=== PATIENT | female | born 1990 | race Caucasian/White ===

== ENCOUNTER 2022-07-14 16:08 | Emergency (ER) | payer MEDICAID, SELFPAY ==
[2022-07-14 16:09] VITALS: BP 133/84; PULSE 79; RESP 16; TEMP 36.7; O2SAT 99; BMI 42.5
[2022-07-14 16:22] VITALS: BP 133/84; PULSE 79; RESP 16; TEMP 36.7; O2SAT 99
[2022-07-14 17:11] VITALS: BP 133/84; PULSE 79; RESP 16; TEMP 36.7; O2SAT 99
--- NOTE | 2022-07-14 17:54 | EDS_ITS ---
HPI History of Present Illness Chief Complaint: Cold Sx Informant: patient Narrative Narrative: Is a 32-year-old female with history of anxiety presenting with COVID-like symptoms. She is on multiple sick contacts at work. She works at [employer]. She started having symptoms 2 days ago including sore throat and stuffy nose. This is progressed to cough, congestion and then she developed decreased taste. She has some migraines. Has been taking Tylenol and [id number] allergy medicine. She wants to make sure she does or does not have COVID because she supposed to have her son for the weekends and also for work. No other complaints at this time. PFSH PFSH Medical History Non-smoker Home Medications dextromethorphan-guaifenesin ER 60 mg-1,200 mg tab,extend release,12hr (Mucinex DM) 1 tab PO BID PRN flu symptoms #20 tabs 07/14/22 [Rx Last Taken Unknown] ferrous sulfate 325 mg (65 mg iron) tablet (FeroSul) 345 mg PO DAILY 07/14/22 [History Last Taken Unknown] meloxicam 7.5 mg tablet 7.5 mg PO BID 07/14/22 [History Last Taken Unknown] venlafaxine 150 mg tablet,extended release 24 hr 150 mg PO DAILY 07/14/22 [History Last Taken Unknown] Allergy/AdvReac Type Severity Reaction Status Date / Time latex AdvReac Rash Verified 07/14/22 16:11 Social History Smoking Status: Never smoker ROS [facility] ED Constitutional Constitutional ED: Reports chills and sweats; Denies fever(s) Eyes Eyes: Denies change in vision ENT ENT ED: Reports rhinorrhea and sore throat; Denies ear pain Cardiovascular Cardiovascular: Denies chest pain or palpitations Respiratory/Chest Respiratory/Chest: Reports cough; Denies dyspnea Gastrointestinal Gastrointestinal: Denies abdominal pain, diarrhea, nausea or vomiting Genitourinary Genitourinary ED: Denies dysuria or hematuria Musculoskeletal Musculoskeletal: Denies arthralgias, back pain, myalgias or neck pain Integumentary Denies rash Neurologic Neurologic: Reports headache(s); Denies paresthesias or weakness Psychiatric Psychiatric: Reports anxiety Hematologic/Lymphatic Hematologic/Lymphatic: Denies easy bleeding or easy bruising EXAM Physical Exam Const Vital Signs: 07/14/22 16:09 07/14/22 16:22 07/14/22 16:23 Temperature 98.1 F 98.1 F Temperature Source Temporal Temporal Pulse Rate 79 79 Respiratory Rate 16 16 Respiratory Effort Normal Respiratory Depth Normal Respiratory Pattern Normal Blood Pressure 133/84 H 133/84 H Blood Pressure Mean 100 100 Pulse Ox 99 99 Oxygen Delivery Method Room Air Room Air Room Air 07/14/22 17:11 Temperature 98.1 F Temperature Source Temporal Pulse Rate 79 Respiratory Rate 16 Respiratory Effort Respiratory Depth Respiratory Pattern Blood Pressure 133/84 H Blood Pressure Mean 100 Pulse Ox 99 Oxygen Delivery Method Room Air Positive well nourished and well developed General Appearance ED: well developed and NAD HEENT Reports TM's clear and moist mucous membranes HEENT Narrative: Air-fluid levels noted behind bilateral tympanic membranes. Normal oropharynx. Nasal congestion present. No redness overlying the sinuses. Tympanic Membrane ED: Yes TM's clear Eyes PERRL and EOMs intact bilaterally Neck supple and no JVD Chest Wall inspection of chest normal and palpation of chest normal Resp normal respiratory effort and clear to auscultation bilaterally Cardio regular rate, regular rhythm and no murmurs GI normal to inspection, nondistended, normoactive bowel sounds and non-tender Extremity normal to inspection Neuro oriented x3 Sensorium / Orientation: alert Motor Exam: Negative for general weakness Psych mental status grossly normal Skin no rashes or lesions noted and no wounds MDM MDM MDM Narrative Medical decision making narrative: Patient evaluated for COVID-like symptoms. She is overall well-appearing. No signs of respiratory distress. Vital signs are normal. COVID test is positive in the ER. Patient given general precautions and isolation precautions. Given a work note. Counseled on return precautions. Encouraged follow-up with primary care doctor. Discharged home in stable condition. Discharge Plan Triage Chief Complaint: Cold Sx ED Provider: Joy Hoyos Dx/Rx/DC Orders Clinical Impression: COVID-19 virus infection Instructions: Coronavirus Disease 2019 (COVID-19): Caring for Yourself or Others Prescriptions: New dextromethorphan-guaifenesin [Mucinex DM] 60-1,200 mg tablet extended release 12 hr 1 tab PO BID PRN (Reason: flu symptoms) Qty: 20 0RF No Action meloxicam 7.5 mg tablet 7.5 mg PO BID ferrous sulfate [FeroSul] 325 mg (65 mg iron) tablet 345 mg PO DAILY venlafaxine 150 mg tablet extended release 24hr 150 mg PO DAILY Stand Alone Forms: ED Work / School Excuse Primary Care Provider: Care Physician,No Primary Referrals: Care Physician,No Primary [Primary Care Provider] - Disposition Disposition: Home, Self Care
== END 2022-07-14 18:05 | disposition home or self-care (01) ==
PROVIDERS: Emergency Provider Emergency Medicine; Visit Provider Emergency Medicine
DX: U07.1 COVID-19 (principal)
CPT/HCPCS: 87428; 99282

== ENCOUNTER 2023-12-05 15:55 | Emergency (ER) | payer MEDICAID, SELFPAY ==
[2023-12-05 15:57] VITALS: BP 139/80; PULSE 85; RESP 18; TEMP 36.2; O2SAT 98; BMI 46.2
--- NOTE | 2023-12-05 16:36 | EDS_ITS ---
HPI History of Present Illness Chief Complaint: Back Informant: patient Narrative Narrative: 33-year-old female presenting to the emergency room with concern for pilonidal cyst. Patient states she has had 1 several years ago that was received incision and drainage. 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 States that her insurance was discontinued and she is not currently seeing primary care. She notes some pain that she has been experiencing for the past several weeks worse over the past several days in the low lumbar sacral region is concerned that maybe she has a cyst returning. Patient denies any drainage or fevers. She notes no radicular symptoms currently. She also notes that she is approximately 1 month late on her menstrual cycle. She notes 2 home test that were negative but I do not trust them and she wonders if she can get a blood test for . PFSH PFSH Medical History Non-smoker Home Medications dextromethorphan-guaifenesin ER 60 mg-1,200 mg tab,extend release,12hr (Mucinex DM) 1 tab PO BID PRN flu symptoms #20 tabs 07/14/22 [Rx Last Taken Unknown] ferrous sulfate 325 mg (65 mg iron) tablet (FeroSul) 345 mg PO DAILY 07/14/22 [History Last Taken Unknown] meloxicam 7.5 mg tablet 7.5 mg PO BID 07/14/22 [History Last Taken Unknown] venlafaxine 150 mg tablet,extended release 24 hr 150 mg PO DAILY 07/14/22 [History Last Taken Unknown] Allergy/AdvReac Type Severity Reaction Status Date / Time mustard Allergy Hives Verified 12/05/23 15:56 latex AdvReac Rash Verified 07/14/22 16:11 Social History Smoking Status: Never smoker ROS ROS ED Constitutional Constitutional ED: Denies chills or weight loss Eyes Eyes: Denies change in vision or diplopia ENT ENT ED: Denies ear pain, rhinorrhea or sore throat Cardiovascular Cardiovascular: Denies chest pain, orthopnea, palpitations or racing heartbeat Respiratory/Chest Respiratory/Chest: Denies cough, dyspnea or orthopnea Gastrointestinal Gastrointestinal: Denies abdominal pain, diarrhea, nausea or vomiting Genitourinary Genitourinary ED: Denies dysuria, hematuria or urinary frequency Musculoskeletal Musculoskeletal: Reports back pain; Denies arthralgias or myalgias Integumentary Denies abscess or rash Neurologic Neurologic: Denies headache(s) or weakness Psychiatric Psychiatric: Denies anxiety, depression, suicidal ideation or suicidal thoughts Endocrine Endocrinology: Denies polydipsia, polyphagia or polyuria Allergic/Immunologic Allergic/Immunologic ED: Denies mouth swelling, tongue swelling or urticaria EXAM Physical Exam Const Vital Signs: 12/05/23 15:57 Temperature 97.2 F L Temperature Source Temporal Pulse Rate 85 Respiratory Rate 18 Blood Pressure 139/80 H Blood Pressure Mean 99 Pulse Ox 98 Oxygen Delivery Method Room Air Positive well nourished, well developed and obese General Appearance ED: well developed Nutritional Appearance: obese HEENT Reports normocephalic, head/scalp atraumatic and moist mucous membranes Eyes PERRL and EOMs intact bilaterally Neck no lymphadenopathy, supple and no JVD Resp normal respiratory effort and clear to auscultation bilaterally Cardio regular rate, regular rhythm and no murmurs GI normal to inspection, nondistended, normoactive bowel sounds and non-tender Palpation: soft Back/Spine no CVA tenderness and normal ROM Back/Spine Narrative: Patient reports tenderness to palpation over the lower lumbar paraspinal musculature and over the sacral region. Skin exam reveals no erythema no fluctuance or induration. I do not see any obvious pilonidal cyst. Extremity normal to inspection General Extremety ED: Negative for edema General Extremity: Negative for edema Neuro oriented x3 and CN's II-XII intact bilaterally Sensorium / Orientation: alert Motor Exam: strength 5/5 throughout Psych mental status grossly normal Mood & Affect: Negative for depressed or tearful Skin no rashes or lesions noted and no wounds MDM MDM MDM Narrative Medical decision making narrative: I performed a bedside ultrasound did not see any fluid collection underneath the skin that would require drainage at this time. This would support the physical exam of the skin. I obtained a serum test. This was negative. 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 Would recommend anti-inflammatories for the low back pain. Not seeing evidence of a cyst that would need to be drained. She is aware that these may suddenly appear to return if they do. Lab Data Attestation: I reviewed the patient's lab results. Labs: Laboratory Results - last 24 hr 12/05/23 16:56 Serum , Qual NEGATIVE Discharge Plan Triage Chief Complaint: Back ED Provider: Jaylen Montejo Dx/Rx/DC Orders Clinical Impression: Back pain Instructions: ED Back Pain (Acute or Chronic) Prescriptions: No Action meloxicam 7.5 mg tablet 7.5 mg PO BID ferrous sulfate [FeroSul] 325 mg (65 mg iron) tablet 345 mg PO DAILY venlafaxine 150 mg tablet extended release 24hr 150 mg PO DAILY dextromethorphan-guaifenesin [Mucinex DM] 60-1,200 mg tablet extended release 12 hr 1 tab PO BID PRN (Reason: flu symptoms) Qty: 20 0RF Primary Care Provider: Care Physician,No Primary Referrals: Porsha Aceves MD [Med Staff - Active Staff] - As soon as possible Care Physician,No Primary [Primary Care Provider] - Disposition Disposition: Home, Self Care
[2023-12-05 17:23] LABS: Internal QC Validated? YES +Cl - CLEAR BKGD; Pregnancy, Serum, hCG Quali. NEGATIVE Negative
[2023-12-05 17:39] VITALS: BP 139/80; PULSE 85; RESP 18; TEMP 36.2; O2SAT 98
== END 2023-12-05 17:40 | disposition home or self-care (01) ==
PROVIDERS: Emergency Provider Emergency Medicine; Visit Provider Emergency Medicine
DX: M54.9 Dorsalgia, unspecified (principal)
CPT/HCPCS: 36415; 84703; 99282

== ENCOUNTER 2024-09-07 12:10 | Emergency (ER) | payer MEDICAID, SELFPAY ==
[2024-09-07 12:11] VITALS: BP 137/94; PULSE 67; RESP 20; TEMP 36; O2SAT 100; BMI 46.1
[2024-09-07 12:12] VITALS: BP 137/94; PULSE 67; RESP 20; TEMP 36; O2SAT 100
--- NOTE | 2024-09-07 12:18 | EDS_ITS ---
HPI <RANDA Hebert - Last Filed: 09/07/24 12:59> History of Present Illness Chief Complaint: Wound Narrative Narrative: Patient is a 34-year-old female with history anxiety presents to the [facility] apartment with 1 month of worsening pain to the left fifth toe. Patient that she does have a wound to the medial aspect. She does note a month ago however is getting significantly worse. She did see a [facility] who put her on 5 days of antibiotic. Patient does have a PCP however she does not have a clinical program director. Denies any fever chills nausea or vomiting. Patient is mostly here because the pain [facility] <RANDA Hebert - Last Filed: 09/07/24 12:59> [facility] Medical History Non-smoker Home Medications ?Medication ?Instructions ?Recorded ?Last Taken ?Type meloxicam 7.5 mg tablet 7.5 mg PO BID 07/14/22 Unknown History venlafaxine 150 mg tablet,extended 150 mg PO DAILY 07/14/22 Unknown History release 24 hr buspirone 10 mg tablet 10 mg PO BID 08/17/24 Unknown History doxycycline hyclate 100 mg tablet 100 mg PO BID #14 tabs 09/07/24 Unknown Rx Allergy/AdvReac Type Severity Reaction Status Date / Time mustard Allergy Hives Verified 08/17/24 13:32 latex AdvReac Rash Verified 08/17/24 13:32 Family History (Updated 08/17/24 @ 13:35 by Ami Cain MA) Father Heart disease Diabetes Cancer Hypertension Mother DDD (degenerative disc disease) Arthritis Surgical History History of surgery on lower extremity History of carpal tunnel surgery Hx of appendectomy Social History Smoking Status: Never smoker ROS <RANDA Hebert - Last Filed: 09/07/24 12:59> ROS ED ROS Narrative Constitutional: Negative for fever, chills, weight loss, weakness Eyes: Negative for vision loss, vision change, double vision ENT: Negative for any sore throat, ear pain, congestion Cardiovascular: Negative for any chest pain, tightness, palpitations Respiratory: Negative for any cough, sputum production, hemoptysis, dyspnea, dyspnea on exertion, orthopnea Gastrointestinal: Negative for any abdominal pain, nausea, vomiting, diarrhea, constipation, blood in stool, blood in vomit : Negative for any urinary frequency, dysuria, retention, blood in urine Muscle skeletal: Negative for any neck pain, back pain. Positive left fifth toe pain Neurological: Negative for any headache, syncope, dizziness Skin: Negative for any rashes, itching, abrasions, lacerations. Positive slight erythema to the left fifth toe Psychiatric: Negative for any depression, anxiety, stress, suicidal ideation, homicidal ideation Hematologic: Negative for any excessive bruising, easy bleeding EXAM <RANDA Hebert - Last Filed: 09/07/24 12:59> Physical Exam Narrative Exam Narrative: Vital signs reviewed. Extremities: No peripheral edema, no signs of gross trauma or deformity. Active full range of motion of all extremities. Patient does have some erythema to the left fifth toe. On the medial aspect, there does seem to be a growth/callus. There is some tenderness on palpation. There is no drainage. Neuro: Cranial nerves II through XII intact, no focal neurological deficits. Skin: Clean dry and intact with no rash, purpura, petechiae, vesicles or pustules. Backs/flank: No CVA tenderness, no midline spinal tenderness, no deformity. Psych: Normal mood and affect. No SI, HI or acute psychosis. Const Vital Signs: 09/07/24 12:11 09/07/24 12:12 Temperature 96.8 F L 96.8 F L Temperature Source Temporal Temporal Pulse Rate 67 67 Respiratory Rate 20 H 20 H Blood Pressure 137/94 H 137/94 H Blood Pressure Mean 108 108 Pulse Ox 100 100 Oxygen Delivery Method Room Air Room Air <Dr. Jaylen Montejo, DO - Last Filed: 09/07/24 13:02> Physical Exam Const Vital Signs: 09/07/24 12:11 09/07/24 12:12 Temperature 96.8 F L 96.8 F L Temperature Source Temporal Temporal Pulse Rate 67 67 Respiratory Rate 20 H 20 H Blood Pressure 137/94 H 137/94 H Blood Pressure Mean 108 108 Pulse Ox 100 100 Oxygen Delivery Method Room Air Room Air MDM <RANDA Hebert - Last Filed: 09/07/24 12:59> MDM Radiography Diagnostic Testing: Clinical Impression(s) from Imaging Studies Foot X-Ray 09/07/24 12:25 IMPRESSION: Plantar calcaneal spur. No demonstrated fracture. Electronically Signed: Fantasma Jay MD at 12:45 EST , Treatment and Re-Evaluation :: Differential diagnosis includes however is not limited to: Cellulitis, osteomy elitis, corn, fracture Patient appears generally well, vital signs are stable, patient is nontoxic- appearing. Presenting to the emergency department for complaints of 1 month of left fifth toe pain. Patient will receive an x-ray to ensure there is no deep tissue infection. All radiologic examinations were read, reviewed by the emergency department attending. From these reads, a plan of care will be put in place. X-rays of the left foot showed no acute process. There is no evidence of osteomyelitis. No fracture. Patient's BGT was 89, patient was given postop shoe. Patient was started on doxycycline for 1 week. Work note given. At this time, patient stable for discharge <Dr. Jaylen Montejo, DO - Last Filed: 09/07/24 13:02> MDM Radiography Diagnostic Testing: Clinical Impression(s) from Imaging Studies Foot X-Ray 09/07/24 12:25 IMPRESSION: Plantar calcaneal spur. No demonstrated fracture. Electronically Signed: Fantasma Jay MD at 12:45 EST , Treatment and Re-Evaluation :: Differential diagnosis includes however is not limited to: Cellulitis, osteomyelitis, corn, fracture Patient appears generally well, vital signs are stable, patient is nontoxic- appearing. Presenting to the emergency department for complaints of 1 month of left fifth toe pain. Patient will receive an x-ray to ensure there is no deep tissue infection. All radiologic examinations were read, reviewed by the emergency department attending. From these reads, a plan of care will be put in place. X-rays of the left foot showed no acute process. There is no evidence of osteomyelitis. No fracture. Patient's BGT was 89, patient was given postop shoe. Patient was started on doxycycline for 1 week. Work note given. At this time, patient stable for discharge I have personally performed a face to face assessment of the patient and have reviewed the DANETTE Note. I performed a substantive portion of the visit including all aspects of the following. My britton findings include: History is 34-year-old female reporting pain and redness to the left little toe. Patient recently treated with a 5-day course of Keflex. She is not a diabetic. Exam is there is some erythema of the left little toe. There is a corn over the medial aspect of the toe. Do not appreciate an ingrown toenail no evidence at this time of paronychia. The fat pad is soft. Medical Decison Making my independent interpretation of the plain films of the foot is no acute fracture or evidence of osteomyelitis. Patient can be started on antibiotics. I think she should probably see podiatry for evaluation of this infection as well as the definitive management of her corn. I put padding in between the toes. Postop shoe be given. Discharge Plan Triage Chief Complaint: Wound Other Complaint: Lower Extremity Injury ED Midlevel Provider: Charly Norman ED Provider: Jaylen Montejo Dx/Rx/DC Orders Clinical Impression: Toe infection Instructions: ED Wound Check (Infection) Prescriptions: New doxycycline hyclate 100 mg tablet 100 mg PO BID Qty: 14 0RF No Action buspirone 10 mg tablet 10 mg PO BID Rx Instructions: unsure of dose meloxicam 7.5 mg tablet 7.5 mg PO BID venlafaxine 150 mg tablet extended release 24hr 150 mg PO DAILY Primary Care Provider: Sofia Sampson Referrals: Omar Rdz DPM [Med Staff - Active Staff] - Care Physician,No Primary [Non-Staff] - Activity Restrictions/Additional Instructions: Use the postop shoe for comfort. Take the antibiotics. You may continue to use Tylenol ibuprofen. You need to follow-up with podiatry. Print Language: Croatian Disposition Disposition: Home, Self Care
--- NOTE | 2024-09-07 12:25 | RAD_ITS ---
STUDY: X-RAY - LEFT FOOT CLINICAL: Female, 34 years old. 5th toe infection. TECHNIQUE: 3 views of the left foot. COMPARISON: None. FINDINGS: Intact talus, calcaneus, and tarsal bones. There is a plantar calcaneal spur. Normal visualized subtalar, talonavicular, calcaneocuboid, tarsal and tarsometatarsal articulations. Normal metatarsi. Normal metatarsophalangeal joint of the great toe. Normal tibial and fibular sesamoid bones. Normal interphalangeal joint of the great toe. Normal phalanges of the great toe. Normal second through fifth metatarsophalangeal joints. Normal interphalangeal joints and phalanges of the lesser toes. The soft tissue structures are unremarkable. There is no demonstrated fracture. RAD/Foot min 3 Views IMPRESSION: Plantar calcaneal spur. No demonstrated fracture. Electronically Signed: Fantasma Jay MD at 12:45 EST ,
[2024-09-07] MEDS: Doxycycline 100 MG CAPSULE PO (12:51)
[2024-09-07 13:02] VITALS: BP 135/74; PULSE 68; RESP 15; TEMP 36.4; O2SAT 96
[2024-09-07 13:09] LABS: Bedside Glucose 89 mg/dL (74-106)
== END 2024-09-07 13:04 | disposition home or self-care (01) ==
PROVIDERS: Emergency Provider Emergency Medicine; PCP Nurse Practitioner Family; Referring Provider Emergency Medicine; Visit Provider Emergency Medicine
DX: L03.032 Cellulitis of left toe (principal); F41.9 Anxiety disorder, unspecified; B99.8 Other infectious disease
CPT/HCPCS: 73630; 82962; 99283

== ENCOUNTER 2025-01-16 18:57 | Emergency (ER) | payer MEDICAID, SELFPAY ==
[2025-01-16 18:58] VITALS: BP 131/82; PULSE 80; RESP 18; TEMP 36.6; O2SAT 98; BMI 44.4
--- NOTE | 2025-01-16 19:17 | EDS_ITS ---
HPI History of Present Illness Chief Complaint: Back Narrative Narrative: 34-year-old female presents with back pain that she experienced today while at work. She relates history that about a year and a half ago she was diagnosed with DJD of the lumbar spine. Today, while she was at work, she states she moved a certain way and felt back pain and numbness and tingling down her lumbar spine. She states her numbness is usually localized to the low back. She denies any recent fevers or chills, no nausea or vomiting, no saddle anesthesia. Pain is not radicular. No numbness of her legs. She states that while she was not incontinent of bowel, she was incontinent of urine twice, but after she went home, she is not having problems with urination, or urinary incontinence. PFSH PFSH Medical History Non-smoker Home Medications ?Medication ?Instructions ?Recorded ?Last Taken ?Type meloxicam 7.5 mg tablet 7.5 mg PO BID 07/14/22 Unkno wn History buspirone 10 mg tablet 10 mg PO BID 08/17/24 Unknow n History cyclobenzaprine 10 mg tablet 10 mg PO TID PRN Muscle S pasm #20 01/16/25 Unknown Rx TABLETS naproxen 500 mg tablet 500 mg PO BID #14 tabs 01/16 Unknown Rx venlafaxine 150 mg 150 mg PO DAILY 01/16/25 Unk nown History capsule,extended release 24 hr Allergy/AdvReac Type Severity Reaction Status Date / Time mustard Allergy Hives Verified 01/16/25 18:58 latex AdvReac Rash Verified 01/16/25 18:58 Family History Father Heart disease Diabetes Cancer Hypertension Mother DDD (degenerative disc disease) Arthritis Surgical History History of surgery on lower extremity History of carpal tunnel surgery Hx of appendectomy Social History Smoking Status: Never smoker ROS ROS ED ROS Narrative Review of systems positive for low back pain and numbness and tingling of lumbar spine. Reported 2 episodes of urinary incontinence, no bowel incontinence, no saddle anesthesia, no fevers or chills, no nausea or vomiting, no radicular symptoms. EXAM Physical Exam Narrative Exam Narrative: Afebrile. Vital signs noted sounds. Nontoxic-appearing. Cardiovascular examination reveals a regular rate and rhythm. Lungs are clear to auscultation bilaterally. Abdomen is soft, nontender, without guarding or rebound. Positive bowel sounds. Neurological examination is nonfocal, nonlateralizing. While she manifests mild tenderness palpation diffusely throughout the lumbar spine, there is no vertebral point tenderness or bony step-off noted. She appears neuro vastly intact to the bilateral lower extremities, DTRs, patellar, are equal and symmetric. EHL intact bilaterally. Straight leg raising bilaterally is negative. Const Vital Signs: 01/16/25 18:58 Temperature 97.8 F Temperature Source Temporal Pulse Rate 80 Respiratory Rate 18 Blood Pressure 131/82 H Blood Pressure Mean 98 Pulse Ox 98 Oxygen Delivery Method Room Air MDM MDM MDM Narrative Medical decision making narrative: Differential diagnosis includes but not limited to lumbosacral strain versus DJD versus cauda equina versus UTI. The patient really is showing no other signs of cauda equina, and she had only reported 2 episodes of this transient urinary incontinence. She does not have saddle anesthesia, she is neurovascularly intact to the bilateral lower extremities. I do not feel she needs stat MRI. Urinalysis will be obtained as well as urine hCG and x-rays of the lumbar spine. This will be to rule out any acute compression fracture. On my independent interpretation of her x-rays, there is no acute fracture, she does have DJD of the spine. I reviewed the radiology report which confirms my independent interpretation. Urinalysis does have 20-50 WBCs, but there are 10- 25 squamous epithelial cells. I feel this is more of a contaminated specimen. Urine test is negative. She is not having problems with bowel incontinence or urinary incontinence currently, and additionally she was able to drive herself here which further lessens my suspicion for cauda equina syndrome or need for stat MRI. At this point in time, I feel she be discharged to follow-up. I wrote her prescription for naproxen and Flexeril, she has taken Flexeril before, and she was given 1 dose of naproxen here in the emergency department. She will follow- up with her primary care provider. Return instructions reviewed. Disposition is discharged home in stable condition. Lab Data Labs: Laboratory Results - last 24 hr 01/16/25 19:24 Urine Color Yellow Urine Clarity Cloudy Urine pH 5.0 Ur Specific [place] 1.025 Urine Protein 30 H Urine Glucose (UA) Normal Urine Ketones Negative Urine Occult Blood Negative Urine Nitrite Negative Urine Bilirubin Negative Urine Urobilinogen Normal Ur Leukocyte Esterase 500 H Urine RBC 0 SEEN Urine WBC 25-50 SEEN Ur Squamous Epith Cells 10-25 SEEN Urine Bacteria 0 SEEN Urine Mucus 0 SEEN Urine Test Negative Radiography Diagnostic Testing: Clinical Impression(s) from Imaging Studies Lumbar Spine X-Ray 01/16/25 19:30 IMPRESSION: No acute compression fracture or subluxations. L5 pars defect is not entirely excluded. Minimal multilevel degenerative changes of the lumbar spine. Consider CT/MR if there is concern for spinal pathology. Reading Location: [facility] Discharge Plan Triage Chief Complaint: Back ED Provider: Jonel Mejia Dx/Rx/DC Orders Clinical Impression: Acute on chronic low back pain, Degenerative joint disease (DJD) of lumbar spine Instructions: ED Back Pain (Acute or Chronic) Prescriptions: New cyclobenzaprine 10 mg tablet 10 mg PO TID PRN (Reason: Muscle Spasm) Qty: 20 0RF naproxen 500 mg tablet 500 mg PO BID Qty: 14 0RF No Action buspirone 10 mg tablet 10 mg PO BID Rx Instructions: unsure of dose meloxicam 7.5 mg tablet 7.5 mg PO BID venlafaxine 150 mg capsule,extended release 24hr 150 mg PO DAILY Primary Care Provider: Sofia Sampson Referrals: Sofia Sampson, DIRECTOR OF ASSESSING-C [Primary Care Provider] - As soon as possible Activity Restrictions/Additional Instructions: Return to the emergency department with fever, new or worsening symptoms. Follow-up with your primary care provider. Take the prescription naproxen and muscle relaxer as needed. Print Language: Ecuad[place] Disposition Disposition: Home, Self Care
[2025-01-16 19:28] LABS: Bacteria 0 SEEN /hpf (None Seen); Mucous, Urine 0 SEEN /hpf (<or=2+); Red Blood Cells-Urine 0 SEEN /hpf (0-5)
[2025-01-16 19:30] LABS: Color, Urine Yellow (Yellow); Glucose, Dipstick Normal (Normal); Ketone-Dipstick Negative (Negative); Leukocyte Esterase-Dipstick 500 /ul (Negative); Nitrite-Dipstick Negative (Negative); Occult Blood-Urine Negative /ul (Negative); Protein-Dipstick 30 mg/dl (Negative); Specific Gravity, Urine 1.025 (1.002-1.030); Urine Bilirubin Dipstick Negative (Negative); Urine Clarity Cloudy (Clear); Urine Urobilinogen Normal (Normal)
--- NOTE | 2025-01-16 19:30 | RAD_ITS ---
PROCEDURE: LUMBAR SPINE 2 OR 3 VIEWS 01/16/2025 REASON FOR EXAM: PAIN TECHNIQUE: 2 view(s) of the lumbar spine COMPARISON: None FINDINGS: No acute compression fracture or subluxations. L5 pars defect is not entirely excluded. Minimal multilevel degenerative changes of the lumbar spine. Consider CT/MR if there is concern for spinal pathology. No acute soft tissue abnormalities. No radiographic foreign body. RAD/Lumbar Spine 2 or 3 Views IMPRESSION: No acute compression fracture or subluxations. L5 pars defect is not entirely excluded. Minimal multilevel degenerative changes of the lumbar spine. Consider CT/MR if there is concern for spinal pathology. Reading Location: [id number]
[2025-01-16 19:37] LABS: Internal QC Validated? YES +Cl - CLEAR BKGD; Pregnancy, Urine Negative Negative; Record Kit Lot#,Urine Preg 947241
[2025-01-16 19:41] LABS: Squamous Epithelial Cells - UA 10-25 SEEN /hpf (5-10)
[2025-01-16 19:43] LABS: White Blood Cells 25-50 SEEN /hpf (0-5)
[2025-01-16 20:38] VITALS: BP 130/74; PULSE 75; RESP 16; TEMP 36.6; O2SAT 98
[2025-01-16] MEDS: Naproxen 500 MG Tablet PO (20:38)
== END 2025-01-16 20:38 | disposition home or self-care (01) ==
PROVIDERS: Emergency Provider Emergency Medicine; PCP Nurse Practitioner Family; Visit Provider Emergency Medicine
DX: M54.50 Low back pain, unspecified (principal); M47.816 Spondylosis without myelopathy or radiculopathy, lumbar region; G89.29 Other chronic pain
CPT/HCPCS: 72100; 81001; 81025; 99282

== ENCOUNTER 2025-06-07 08:18 | Emergency (ER) | payer MEDICAID, SELFPAY ==
[2025-06-07 08:18] VITALS: BP 142/85; PULSE 68; RESP 14; TEMP 35.5; O2SAT 98; BMI 47.7
[2025-06-07 09:31] LABS: Internal QC Validated? YES +Cl - CLEAR BKGD; Pregnancy, Urine Negative Negative; Record Kit Lot#,Urine Preg 980607
[2025-06-07 09:41] LABS: Hematocrit 37.8 % (37-47); Hemoglobin 11.8 g/dL (12.0-15.0); Immature Granulocytes Count 0.030 X10^3/uL (0.0-0.0); Mean Corp Hgb Conc 31.2 g/dL (32-36); Mean Corpuscular Volume 88.5 fL (81-99); Mean Platelet Vol. 11.6 fl (6.2-12.0); NRBC Flagged by Analyzer 0 % (0-5); Platelet Count 233 K/mm3 (150-450); RBC Distribution Width CV 13.2 % (11.6-14.6); RBC Distribution Width SD 42.5 fl (35.1-43.9); Red Blood Count 4.27 M/mm3 (4.2-5.4); White Blood Count 7.7 K/mm3 (4.4-11.0)
[2025-06-07 10:03] LABS: Troponin T High Sensitivity < 6 ng/L (<=14)
[2025-06-07 10:20] LABS: Anion Gap 11 (5-15); BUN 16 mg/dL (4-19); BUN/Creat Ratio 26.8 RATIO (10-20); Calcium,Total 9.3 mg/dL (7.6-11.0); Carbon Dioxide 22.8 mmol/L (21.0-32.0); Chloride 105 mmol/L (98-108); Estimated Creatinine Clearance 189.39 ml/min (50-250); Glucose 95 mg/dL (70-99); Potassium 4.3 mmol/L (3.3-5.1)
[2025-06-07 11:11] VITALS: BP 129/81; PULSE 57; RESP 17; TEMP 36.6; O2SAT 100
== END 2025-06-07 11:43 | disposition home or self-care (01) ==
PROVIDERS: Emergency Provider Emergency Medicine; Visit Provider Emergency Medicine
DX: S16.1XXA Strain of muscle, fascia and tendon at neck level, initial encounter (principal); M25.511 Pain in right shoulder; R07.89 Other chest pain; F41.9 Anxiety disorder, unspecified; Z79.899 Other long term (current) drug therapy; M62.830 Muscle spasm of back; F32.A Depression, unspecified; X58.XXXA Exposure to other specified factors, initial encounter
CPT/HCPCS: 71046; 73030; 80048; 81025; 84484; 85025; 93005; 99284; A4216